=== PATIENT | female | born 1990 | race Caucasian/White ===

== ENCOUNTER 2023-01-13 16:29 | Emergency (ER) | payer MEDICAID ==
[~2023-01-13] VITALS: Ht 160 cm; Wt 49.9 kg
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
[2023-01-13] MEDS ORDERED: IBUPROFEN 600 MG TABLET PO ONE (18:00)
[2023-01-13] MEDS ORDERED: ACETAMINOPHEN ES 500 MG TABLET PO ONE (18:00)
[2023-01-13] MEDS ORDERED: ACETAMINOPHEN ES 500 MG TABLET ONE (18:02)
[2023-01-13] MEDS ORDERED: IBUPROFEN 600 MG TABLET ONE (18:02)
--- NOTE | 2023-01-13 18:11 | NUR ---
PT TAKEN TO RADIOLOGY FOR CT
--- NOTE | 2023-01-13 18:25 | NUR ---
Pt returned to the ER from CT scan lab.
[2023-01-13] MEDS ORDERED: IBUP-1953 PO (19:36)
--- NOTE | 2023-01-13 19:43 | NUR ---
Patient discharged to home in stable condition. Written and verbal after care instructions given. Patient verbalizes understanding of instruction.
[2023-01-13 21:28] VITALS: BP 130/88
== END 2023-01-13 21:28 | disposition home or self-care (01) ==
LOC: ER 16:34
DX: S16.1XXA Strain of muscle, fascia and tendon at neck level, initial encounter (principal); V89.2XXA Person injured in unspecified motor-vehicle accident, traffic, initial encounter; Y93.89 Activity, other specified; Y92.89 Other specified places as the place of occurrence of the external cause; Y99.8 Other external cause status
CPT/HCPCS: 70450-TC; 72125-TC

== ENCOUNTER 2024-06-26 19:03 | Emergency (ER) | payer MEDICAID, OTHER ==
[~2024-06-26] VITALS: Ht 160 cm; Wt 49.9 kg
[~2024-06-26 19:03] MED LIST: IBUP-1953 PO
[2024-06-26 19:56] LABS: BASOPHILS % (AUTO) 0.4 % (0.0-2.0); EOSINOPHILS # (AUTO) 0.2 K/uL (0.0-0.7); EOSINOPHILS % (AUTO) 1.7 % (0.0-6.0); HEMATOCRIT 36 % (33-45); LYMPHOCYTES # (AUTO) 2.3 K/uL (0.8-4.8); MEAN CORPUSCULAR HEMOGLOBIN 33 PG (26.0-33.0); MEAN CORPUSCULAR HGB CONC 34 g/dl (31.0-36.0); MEAN CORPUSCULAR VOLUME 98 fL (82-100); MONOCYTES # (AUTO) 0.8 K/uL (0.1-1.30); NEUTROPHILS # (AUTO) 6.3 K/uL (1.8-8.9); NEUTROPHILS % (AUTO) 65.9 % (43.0-81.0); PLATELET COUNT (AUTO) 316 K/uL (150-450); RED BLOOD CELL COUNT(AUTO) 3.65 MIL/uL (4.0-5.2); RED CELL DISTRIBUTION WIDTH 13.3 % (11.5-15.0); WHITE BLOOD COUNT (AUTO) 9.5 K/uL (4.3-11.0)
[2024-06-26 20:04] LABS: CALCIUM, SERUM 8.4 mg/dL (8.5-10.1); CREATININE 0.8 mg/dL (0.6-1.3); POTASSIUM 3.2 mmol/L (3.5-5.1)
[2024-06-26 20:44] LABS: APPEARANCE,URINE CLEAR (CLEAR); BILIRUBIN,URINE NEGATIVE (NEGATIVE); BLOOD, URINE 1+ Ery/uL (NEGATIVE); COLOR,URINE YELLOW (YELLOW); KETONES,URINE 2+ mg/dL (NEGATIVE); LEUKOCYTE ESTERASE ,URINE NEGATIVE (NEGATIVE); NITRITE, URINE NEGATIVE (NEGATIVE); PROTEIN,URINE NEGATIVE (NEGATIVE); UGLUCOSE NEGATIVE (NEGATIVE); UROBILINOGEN,URINE 0.2 EU/dL (0.2)
[2024-06-26 20:47] LABS: PREGNANCY TEST URINE QUAL NEGATIVE (NEGATIVE)
[2024-06-26 21:18] LABS: ADD URINE CULTURE YES; BACTERIA,URINE 2+ /HPF (None Seen); MUCUS,URINE Few /LPF (None Seen); WBC,URINE NONE SEEN /HPF (0-3)
[2024-06-26 22:02] VITALS: BP 120/75; TEMP 98.6; O2SAT 100
== END 2024-06-26 22:03 | disposition home or self-care (01) ==
LOC: ER 19:26
DX: R10.2 Pelvic and perineal pain (principal)
CPT/HCPCS: 99284; 76856; 85025; 80048; 87086; 84703; 81001; 36415; A4223; J7030; J7040